=== PATIENT | female | born 1955 | race Caucasian/White ===

== ENCOUNTER 2024-04-18 20:57 | Emergency (ER) | payer MEDICAID, OTHER ==
[~2024-04-18] VITALS: Ht 154.9 cm; Wt 77.1 kg
[2024-04-18 21:00] VITALS: BP 174/104; PULSE 86; RESP 21; TEMP 98.1; O2SAT 100
[2024-04-18] MEDS: NACL 0.9% 1,000 ML IV ONE (21:30)
[2024-04-18 21:51] LABS: BASOPHILS % (AUTO) 0.4 % (0.0-2.0); HEMATOCRIT 37.1 % (36-48); HEMOGLOBIN 12.1 g/dL (12.0-16.0); LYMPHOCYTES # (AUTO) 0.9 K/uL (2.5-16.5); LYMPHOCYTES % (AUTO) 6.9 % (20.5-51.1); MEAN CORPUSCULAR HEMOGLOBIN 30 pg (27-31); MEAN CORPUSCULAR HGB CONC 33 g/dL (33-37); MEAN CORPUSCULAR VOLUME 90.3 fL (80-94); MONOCYTES # (AUTO) 0.4 K/uL (0.8-1.0); MONOCYTES % (AUTO) 2.8 % (1.7-9.3); NEUTROPHILS # (AUTO) 11.4 K/uL (1.8-7.7); NEUTROPHILS % (AUTO) 89.9 % (42.2-75.2); PLATELET COUNT (AUTO) 321 K/uL (140-450); RED BLOOD CELL COUNT(AUTO) 4.11 MIL/uL (4.20-5.40); RED CELL DISTRIBUTION WIDTH 13.4 % (11.6-13.7); WHITE BLOOD COUNT (AUTO) 12.7 K/uL (4.8-10.8)
[2024-04-18 22:23] VITALS: TEMP 98.1
[2024-04-18 22:25] LABS: ANION GAP 16.4 (8-16); CALCIUM 10.2 mg/dL (8.5-10.1); CARBON DIOXIDE 22.5 mmol/L (21-32); POTASSIUM 3.9 mmol/L (3.5-5.1)
[2024-04-18 22:26] LABS: CREATININE 1.1 mg/dL (0.6-1.3)
[2024-04-18] MEDS ORDERED: ALUMINUM HYD/MAG/SIMETHICONE 30 ML UDC ONE (22:36)
[2024-04-18] MEDS ORDERED: DICYCLOMINE HCL LIQUID 10 MG/5 ML UDC ONE (22:36)
[2024-04-18 22:43] LABS: ALBUMIN 4.2 g/dL (3.4-5.0); BILIRUBIN,DIRECT 0.1 mg/dL (0.0-0.3); TOTAL BILIRUBIN 0.5 mg/dL (0.0-1.0); TOTAL PROTEIN, SERUM 7.9 g/dL (6.4-8.2)
[2024-04-18] MEDS: ONDANSETRON 4 MG/2 ML VIAL IVP ONE (22:46)
[2024-04-18] MEDS: DICYCLOMINE HCL LIQUID 20 MG, ALUMINUM HYD/MAG/SIMETHICONE 30 ML, LIDOCAINE VISCOUS 2% ... PO ONE (22:55)
[2024-04-18 23:49] LABS: APPEARANCE,URINE CLEAR (CLEAR); BILIRUBIN,URINE NEGATIVE (NEGATIVE); BLOOD, URINE NEGATIVE (NEGATIVE); COLOR,URINE YELLOW (YELLOW); LEUKOCYTE ESTERASE ,URINE TRACE (NEGATIVE); NITRITE, URINE NEGATIVE (NEGATIVE); PROTEIN,URINE NEGATIVE (NEGATIVE); UGLUCOSE NEGATIVE (NEGATIVE); UROBILINOGEN,URINE 0.2 EU/dL (0.2 - 1)
[2024-04-18 23:55] LABS: BACTERIA,URINE 10-30 (MOD) /HPF (None Seen); MUCUS,URINE 1+ /LPF (None Seen); RBC,URINE 0-5 /HPF (0-5); SQUAMOUS EPITHELIAL CELL,UR 4-10 (MOD) /LPF (0-3 (FEW))
[2024-04-19 00:19] VITALS: BP 125/71; PULSE 84; RESP 14; O2SAT 97
[2024-04-19] MEDS ORDERED: ONDA-188 SL (00:37)
[2024-04-19] MEDS ORDERED: NITR100C7 PO (00:37)
[2024-04-19] MEDS ORDERED: NAPR-337 PO (01:20)
== END 2024-04-19 01:23 | disposition home or self-care (01) ==
LOC: MED 20:57
DX: R11.2 Nausea with vomiting, unspecified (principal); R53.1 Weakness; R10.10 Upper abdominal pain, unspecified; T40.425A Adverse effect of tramadol, initial encounter; N39.0 Urinary tract infection, site not specified; Z79.899 Other long term (current) drug therapy; Y92.89 Other specified places as the place of occurrence of the external cause
CPT/HCPCS: 36415; 80048; 80076; 81001; 83690; 85025; 87086; 93005; 96361; 96374; 99284; J2405; J7030